=== PATIENT | male | born 1960 | race Caucasian/White ===

== ENCOUNTER 2018-08-14 20:58 | Inpatient (IN) ==
[2018-08-14 22:31] LABS: Albumin 2.9 G/DL (3.4-5.0); CKMB % 6.6 %; Calcium 8.2 MG/DL (8.5-10.1); Osmolality,Calculated 302.4 MOS/KG (273-304); Potassium 5.2 MMOL/L (3.5-5.1); Total Protein 6.6 G/DL (6.4-8.3)
[2018-08-14 22:35] LABS: Troponin I 10.6 NG/ML (0.00-0.045)
[2018-08-14] MEDS ORDERED: SODIUM CHLORIDE 0.9% 1,000 ML IV STA (23:01)
[2018-08-15] MEDS ORDERED: DEXTROSE 50% 25 GM/50 ML SYRINGE IV PRN (00:20)
[2018-08-15] MEDS ORDERED: ACETAMINOPHEN 325 MG TABLET PO PRN (00:20)
[2018-08-15] MEDS ORDERED: ALBUTEROL 2.5 MG/3 ML NEB RESP TX PRN (00:20)
[2018-08-15] MEDS ORDERED: GLUCAGON 1 MG VIAL IM PRN ×2 (00:20→17:18)
[2018-08-15] MEDS ORDERED: diphenhydrAMINE CAP 25 MG CAPSULE PO PRN (00:20)
[2018-08-15] MEDS ORDERED: NICOTINE 21 MG/24 HR PATCH TRANSDERM PRN (00:20)
[2018-08-15] MEDS ORDERED: ONDANSETRON 4 MG/2 ML VIAL IV PRN (00:20)
[2018-08-15] MEDS ORDERED: DIAZEPAM 2 MG TABLET PO PRN (00:25)
[2018-08-15] MEDS ORDERED: INSULIN GLARGINE 100 UNIT/ML SUBCUT SCH (00:30)
[2018-08-15 00:56] LABS: Risk Ratio 5.64; VLDL CHOLESTEROL 96.8 MG/DL
[2018-08-15] MEDS: DEXAMETHASONE 4 MG/1 ML VIAL IV SCH ×2 (02:35→12:31)
[2018-08-15] MEDS: PANTOPRAZOLE 40 MG VIAL IV SCH (02:35)
[2018-08-15] MEDS: SODIUM CHLORIDE 0.9% 1,000 ML IV SCH ×3 (02:36→20:30)
[2018-08-15] MEDS: INSULIN REGULAR 100 UNIT/ML SUBCUT SCH ×6 (02:36→22:45)
[2018-08-15 04:52] LABS: Basophils % 0.1 % (0.0-0.8); Hematocrit 35.3 VOL% (42.0-52.0); Hemoglobin 12.4 GM/DL (14.0-18.0); Immature Granulocytes % 1.1 %; Immature Granulocytes Absolute 0.12 #; Lymphocytes # 0.6 10*3/uL (1.4-4.0); Lymphocytes % 5.3 % (21.2-54.2); Mean Corpuscular HGB Conc 35.1 GM/DL (32-36); Mean Corpuscular Hemoglobin 34 PG (27-34); Mean Corpuscular Volume 97.5 FL (87-102); Mean Platelet Volume 11.1 FL (9.6-12.0); Monocytes # 0.3 10*3/uL (0.11-0.8); Monocytes % 3.1 % (1.7-12.7); Neutrophils # 9.6 10*3/uL (1.4-7.4); Neutrophils % 90.4 % (38.7-73.9); Platelet Count 123 T/CUMM (130-400); Red Blood Count 3.62 MC/CUMM (3.8-5.5); Red Cell Distribution Width 13.9 % (9.3-17.3); White Blood Count 10.7 T/CUMM (4-12)
[2018-08-15 04:53] LABS: Apearance,Urine CLEAR (Clear); Bacteria,Urine Occasional /HPF (Few); Bilirubin,Urine Negative (Negative); Blood, Urine Small mg/dL (Negative); Glucose,Urine (UA) >=500 mg/dL (Negative); Ketones,Urine Negative (Negative); Mucus,Urine Occasional /LPF (Occasional); Nitrite,Urine Negative (Negative); Protein,Urine Negative; RBC,Urine 1 /HPF (0-4); Urine Color Straw (Yellow); Urine Specific Gravity 1.012 (1.001-1.035); Urine Urobilinogen < 2.0 EU/DL (0.2-1.0); WBC,Urine 8 /HPF (0-6)
[2018-08-15 05:26] LABS: Albumin 2.5 G/DL (3.4-5.0); Bilirubin,Total 1.2 MG/DL (0.2-1.0); Calcium 7.7 MG/DL (8.5-10.1); Osmolality,Calculated 301.1 MOS/KG (273-304)
[2018-08-15] MEDS: hydroCHLOROthiazide 25 MG TABLET PO SCH (12:30)
[2018-08-15] MEDS: LISINOPRIL 10 MG TABLET PO SCH (12:31)
[2018-08-15] MEDS ORDERED: DEXTROSE 50% 25 GM/50 ML VIAL IV PRN (17:18)
[2018-08-15] MEDS: INSULIN GLARGINE 100 UNIT/ML SUBCUT SCH (22:45)
[2018-08-16] MEDS: DEXAMETHASONE 4 MG/1 ML VIAL IV SCH ×2 (01:40→12:40)
[2018-08-16] MEDS: PANTOPRAZOLE 40 MG VIAL IV SCH (01:43)
[2018-08-16] MEDS: INSULIN REGULAR 100 UNIT/ML SUBCUT SCH ×6 (01:47→21:08)
[2018-08-16] MEDS: SODIUM CHLORIDE 0.9% 1,000 ML IV SCH ×3 (04:30→19:00)
[2018-08-16 05:56] LABS: Basophils % 0.1 % (0.0-0.8); Hematocrit 34.7 VOL% (42.0-52.0); Hemoglobin 12.1 GM/DL (14.0-18.0); Immature Granulocytes Absolute 0.23 #; Lymphocytes # 0.6 10*3/uL (1.4-4.0); Mean Corpuscular HGB Conc 34.9 GM/DL (32-36); Mean Corpuscular Hemoglobin 35 PG (27-34); Mean Corpuscular Volume 99.1 FL (87-102); Mean Platelet Volume 10.6 FL (9.6-12.0); Monocytes # 0.4 10*3/uL (0.11-0.8); Monocytes % 3.6 % (1.7-12.7); Neutrophils # 10.4 10*3/uL (1.4-7.4); Neutrophils % 89.3 % (38.7-73.9); Platelet Count 126 T/CUMM (130-400); Red Cell Distribution Width 14.2 % (9.3-17.3); White Blood Count 11.6 T/CUMM (4-12)
[2018-08-16 06:32] LABS: Calcium 7.9 MG/DL (8.5-10.1); Potassium 5.1 MMOL/L (3.5-5.1)
[2018-08-16] MEDS: hydroCHLOROthiazide 25 MG TABLET PO SCH (08:44)
[2018-08-16] MEDS: LISINOPRIL 10 MG TABLET PO SCH (08:44)
[2018-08-16] MEDS: CIPROFLOXACIN 500 MG TABLET PO SCH ×2 (14:31→21:08)
[2018-08-16] MEDS: INSULIN GLARGINE 100 UNIT/ML SUBCUT SCH (21:07)
[2018-08-17] MEDS: PANTOPRAZOLE 40 MG VIAL IV SCH (01:24)
[2018-08-17] MEDS: DEXAMETHASONE 4 MG/1 ML VIAL IV SCH ×2 (01:25→12:37)
[2018-08-17] MEDS: INSULIN REGULAR 100 UNIT/ML SUBCUT SCH ×6 (01:26→21:28)
[2018-08-17] MEDS: SODIUM CHLORIDE 0.9% 1,000 ML IV SCH ×3 (10:08→17:11)
[2018-08-17] MEDS: LISINOPRIL 10 MG TABLET PO SCH (10:09)
[2018-08-17] MEDS: CIPROFLOXACIN 500 MG TABLET PO SCH ×2 (10:09→21:27)
[2018-08-17] MEDS: hydroCHLOROthiazide 25 MG TABLET PO SCH (10:09)
[2018-08-17] MEDS: ASPIRIN EC 81 MG TABLET PO SCH (10:09)
[2018-08-17] MEDS: INSULIN GLARGINE 100 UNIT/ML SUBCUT SCH (21:28)
[2018-08-18] MEDS: DEXAMETHASONE 4 MG/1 ML VIAL IV SCH ×2 (00:47→14:34)
[2018-08-18] MEDS: PANTOPRAZOLE 40 MG VIAL IV SCH (00:48)
[2018-08-18] MEDS: INSULIN REGULAR 100 UNIT/ML SUBCUT SCH ×4 (00:49→14:34)
[2018-08-18] MEDS: SODIUM CHLORIDE 0.9% 1,000 ML IV SCH ×2 (01:16→11:11)
[2018-08-18 04:57] LABS: Basophils % 0.1 % (0.0-0.8); Hematocrit 39.2 VOL% (42.0-52.0); Hemoglobin 12.3 GM/DL (14.0-18.0); Immature Granulocytes % 1.9 %; Lymphocytes # 0.6 10*3/uL (1.4-4.0); Lymphocytes % 5.9 % (21.2-54.2); Mean Corpuscular HGB Conc 31.4 GM/DL (32-36); Mean Corpuscular Hemoglobin 35 PG (27-34); Mean Corpuscular Volume 111.7 FL (87-102); Mean Platelet Volume 10.6 FL (9.6-12.0); Monocytes # 0.4 10*3/uL (0.11-0.8); Monocytes % 3.7 % (1.7-12.7); Neutrophils # 9.2 10*3/uL (1.4-7.4); Neutrophils % 88.4 % (38.7-73.9); Platelet Count 113 T/CUMM (130-400); Red Blood Count 3.51 MC/CUMM (3.8-5.5); Red Cell Distribution Width 13.8 % (9.3-17.3); White Blood Count 10.4 T/CUMM (4-12)
[2018-08-18 05:13] LABS: Calcium 8.2 MG/DL (8.5-10.1); Osmolality,Calculated 292.5 MOS/KG (273-304); Potassium 4.5 MMOL/L (3.5-5.1)
[2018-08-18 05:28] LABS: Hypochromasia 1+; Platelet Estimate Decreased
[2018-08-18] MEDS: ASPIRIN EC 81 MG TABLET PO SCH (09:05)
[2018-08-18] MEDS: CIPROFLOXACIN 500 MG TABLET PO SCH (09:05)
[2018-08-18] MEDS: LISINOPRIL 10 MG TABLET PO SCH (09:05)
[2018-08-18] MEDS: hydroCHLOROthiazide 25 MG TABLET PO SCH (09:05)
[2018-08-18] MEDS ORDERED: HEPARIN LOCK FLUSH 500 UNIT/5 ML SYRINGE IV ONE (10:08)
[2018-08-18 12:47] VITALS: BP 142/76
== END 2018-08-18 16:00 | disposition home or self-care (01) | DRG 280 ==
LOC: EDUNIT# → EDBD → N.ED 20:58 → SUATTDRO 08-15 00:20 → N.EDINP 08-15 00:20 → N.ICU 08-15 01:30 → N.TELEN 08-15 12:26
PROVIDERS: ADMIT Internal Medicine; ATTEND Internal Medicine

== ENCOUNTER 2018-09-01 22:42 | Inpatient (IN) ==
[2018-09-01] MEDS ORDERED: SODIUM CHLORIDE 0.9% 1,000 ML IV STA (23:08)
[2018-09-01] MEDS ORDERED: NALOXONE 0.4 MG/ML VIAL ONE (23:32)
[2018-09-01] MEDS ORDERED: VANCOMYCIN INJ 1,000 MG in SODIUM CHLORIDE 0.9% 250 ML IV STA (23:33)
[2018-09-01] MEDS ORDERED: NALOXONE 0.4 MG/ML VIAL IV STA (23:33)
[2018-09-01 23:47] LABS: Basophils % 0.1 % (0.0-0.8); Hematocrit 33.8 VOL% (42.0-52.0); Hemoglobin 11.6 GM/DL (14.0-18.0); Immature Granulocytes % 1.5 %; Immature Granulocytes Absolute 0.12 #; Lymphocytes # 0.4 10*3/uL (1.4-4.0); Lymphocytes % 4.7 % (21.2-54.2); Mean Corpuscular HGB Conc 34.3 GM/DL (32-36); Mean Corpuscular Hemoglobin 35 PG (27-34); Mean Corpuscular Volume 101.2 FL (87-102); Mean Platelet Volume 9.8 FL (9.6-12.0); Monocytes # 0.3 10*3/uL (0.11-0.8); Monocytes % 4.2 % (1.7-12.7); Neutrophils # 7.2 10*3/uL (1.4-7.4); Neutrophils % 89.5 % (38.7-73.9); Red Blood Count 3.34 MC/CUMM (3.8-5.5); Red Cell Distribution Width 13.6 % (9.3-17.3); White Blood Count 8.1 T/CUMM (4-12)
[2018-09-01] MEDS ORDERED: ACETAMINOPHEN 325 MG TABLET PO PRN (23:47)
[2018-09-01] MEDS ORDERED: ONDANSETRON 4 MG/2 ML VIAL IV PRN (23:47)
[2018-09-01] MEDS ORDERED: BISACODYL 5 MG TABLET PO PRN (23:47)
[2018-09-01] MEDS ORDERED: traZODone 50 MG TABLET PO PRN (23:47)
[2018-09-01] MEDS ORDERED: diphenhydrAMINE CAP 25 MG CAPSULE PO PRN (23:47)
[2018-09-01] MEDS ORDERED: NICOTINE 21 MG/24 HR PATCH TRANSDERM PRN (23:47)
[2018-09-01 23:49] LABS: Platelet Count 86 T/CUMM (130-400)
[2018-09-02 00:05] LABS: Albumin 2.6 G/DL (3.4-5.0); Calcium 8.4 MG/DL (8.5-10.1); Potassium 5.1 MMOL/L (3.5-5.1); Total Protein 6.2 G/DL (6.4-8.3)
[2018-09-02 00:07] LABS: CKMB % 4.5 %
[2018-09-02 00:09] LABS: Troponin I 4.55 NG/ML (0.00-0.045)
[2018-09-02] MEDS: SODIUM CHLORIDE 0.9% 1,000 ML IV SCH ×3 (01:52→19:06)
[2018-09-02 02:22] LABS: Barbiturates Screen,Urine Negative (Negative); Benzodiazepines Screen,Urine Negative (Negative); Cannabinoid Screen,Urine Negative (Negative); Opiate Screen,Urine Positive (Negative); Phencyclidine Screen,Urine Negative (Negative)
[2018-09-02 02:23] LABS: Bacteria,Urine Many /HPF (Few); RBC,Urine 124 /HPF (0-4); WBC,Urine 3854 /HPF (0-6)
[2018-09-02 02:24] LABS: Apearance,Urine Cloudy (Clear); Urine Color Light Yellow (Yellow)
[2018-09-02 02:25] LABS: Bilirubin,Urine Negative (Negative); Blood, Urine Large mg/dL (Negative); Glucose,Urine (UA) Negative (Negative); Ketones,Urine Negative (Negative); Nitrite,Urine Negative (Negative); Protein,Urine 30 MG/DL; Urine Specific Gravity 1.012 (1.001-1.035); Urine Urobilinogen < 2.0 EU/DL (0.2-1.0)
[2018-09-02 03:55] LABS: Lymphocytes 3 % (20-55); Segmented Neutrophils 96 % (50-85); Total Cells Counted 100
[2018-09-02 03:56] LABS: Platelet Estimate Decreased
[2018-09-02 04:48] LABS: Albumin 2.5 G/DL (3.4-5.0); Bilirubin,Total 0.9 MG/DL (0.2-1.0); Calcium 8.1 MG/DL (8.5-10.1); Osmolality,Calculated 314.4 MOS/KG (273-304); Potassium 4.7 MMOL/L (3.5-5.1); Total Protein 5.6 G/DL (6.4-8.3)
[2018-09-02] MEDS ORDERED: ENOXAPARIN 80 MG/0.8 ML SYRINGE SUBCUT STA (07:00)
[2018-09-02] MEDS ORDERED: PHENYLEPHRINE DRIP 40 MG/250 ML PREMIX IV PRN (08:20)
[2018-09-02] MEDS ORDERED: SODIUM CHLORIDE 0.9% 500 ML IV STA (08:24)
[2018-09-02] MEDS ORDERED: PANTOPRAZOLE 40 MG TABLET PO SCH (09:00)
[2018-09-02] MEDS: LEVOFLOXACIN INJ 750 MG in PREMIX 1 EACH IV SCH (09:40)
[2018-09-02] MEDS: DEXAMETHASONE 4 MG/1 ML VIAL IV SCH ×3 (09:40→20:19)
[2018-09-02] MEDS: PANTOPRAZOLE 40 MG VIAL IV SCH (12:15)
[2018-09-02] MEDS ORDERED: GLUCAGON 1 MG VIAL IM PRN (18:50)
[2018-09-02] MEDS ORDERED: DEXTROSE 50% 25 GM/50 ML SYRINGE IV PRN (18:50)
[2018-09-03] MEDS: DEXAMETHASONE 4 MG/1 ML VIAL IV SCH ×2 (03:35→08:44)
[2018-09-03 03:48] LABS: Hematocrit 30.3 VOL% (42.0-52.0); Hemoglobin 10.1 GM/DL (14.0-18.0); Immature Granulocytes % 1.6 %; Immature Granulocytes Absolute 0.08 #; Lymphocytes # 0.2 10*3/uL (1.4-4.0); Mean Corpuscular HGB Conc 33.3 GM/DL (32-36); Mean Corpuscular Hemoglobin 34 PG (27-34); Mean Corpuscular Volume 103.1 FL (87-102); Mean Platelet Volume 10.1 FL (9.6-12.0); Monocytes # 0.2 10*3/uL (0.11-0.8); Monocytes % 3.2 % (1.7-12.7); Neutrophils # 4.6 10*3/uL (1.4-7.4); Neutrophils % 91.2 % (38.7-73.9); Red Blood Count 2.94 MC/CUMM (3.8-5.5); Red Cell Distribution Width 13.5 % (9.3-17.3)
[2018-09-03 03:51] LABS: Platelet Count 63 T/CUMM (130-400)
[2018-09-03 04:09] LABS: Calcium 7.9 MG/DL (8.5-10.1); Potassium 5.4 MMOL/L (3.5-5.1)
[2018-09-03 04:12] LABS: Troponin I 1.99 NG/ML (0.00-0.045)
[2018-09-03 05:17] LABS: Band Neutrophils 1 % (0-10); Hypochromasia 1+; Lymphocytes 4 % (20-55); Platelet Estimate Decreased; Segmented Neutrophils 95 % (50-85); Total Cells Counted 100
[2018-09-03] MEDS: SODIUM CHLORIDE 0.9% 1,000 ML IV SCH ×2 (05:27→16:30)
[2018-09-03] MEDS: PANTOPRAZOLE 40 MG VIAL IV SCH (08:48)
[2018-09-03] MEDS ORDERED: DIAZEPAM 2 MG TABLET PO PRN (11:59)
[2018-09-03] MEDS: DEXAMETHASONE 4 MG TABLET PO SCH (16:31)
[2018-09-04 04:48] LABS: Hematocrit 27.2 VOL% (42.0-52.0); Hemoglobin 9.3 GM/DL (14.0-18.0); Immature Granulocytes Absolute 0.19 #; Lymphocytes # 0.3 10*3/uL (1.4-4.0); Lymphocytes % 5.5 % (21.2-54.2); Mean Corpuscular HGB Conc 34.2 GM/DL (32-36); Mean Corpuscular Hemoglobin 35 PG (27-34); Mean Corpuscular Volume 101.5 FL (87-102); Mean Platelet Volume 10.3 FL (9.6-12.0); Monocytes # 0.2 10*3/uL (0.11-0.8); Monocytes % 4.9 % (1.7-12.7); Neutrophils % 85.6 % (38.7-73.9); Platelet Count 61 T/CUMM (130-400); Red Blood Count 2.68 MC/CUMM (3.8-5.5); Red Cell Distribution Width 13.2 % (9.3-17.3); White Blood Count 4.7 T/CUMM (4-12)
[2018-09-04 05:05] LABS: Calcium 7.8 MG/DL (8.5-10.1); Osmolality,Calculated 306.1 MOS/KG (273-304); Potassium 5.2 MMOL/L (3.5-5.1)
[2018-09-04 05:21] LABS: Eosinophils 1 % (0-10); Lymphocytes 1 % (20-55); Platelet Estimate Normal; Polychromasia Slight; Segmented Neutrophils 96 % (50-85); Total Cells Counted 100
[2018-09-04] MEDS ORDERED: SALIVA SUBSTITUTE COMBO NO 9 PO SCH (09:00)
[2018-09-04] MEDS: SODIUM CHLORIDE 0.9% 1,000 ML IV SCH ×2 (09:44→16:06)
[2018-09-04] MEDS: PANTOPRAZOLE 40 MG TABLET PO SCH (09:45)
[2018-09-04] MEDS: SODIUM BICARBONATE 650 MG TABLET PO SCH (09:45)
[2018-09-04] MEDS: DEXAMETHASONE 4 MG TABLET PO SCH ×2 (09:45→17:12)
[2018-09-04] MEDS: LEVOFLOXACIN INJ 750 MG in PREMIX 1 EACH IV SCH (09:45)
[2018-09-04] MEDS: ASPIRIN EC 81 MG TABLET PO SCH (09:45)
[2018-09-04] MEDS: AMPICILLIN/SULBACTAM 1,500 MG in SODIUM CHLORIDE 0.9% 100 ML IV SCH (17:13)
[2018-09-04] MEDS: INSULIN LISPRO 100 UNIT/ML SUBCUT SCH ×2 (17:14→20:23)
[2018-09-05] MEDS: SODIUM CHLORIDE 0.9% 1,000 ML IV SCH ×3 (03:03→16:27)
[2018-09-05] MEDS: AMPICILLIN/SULBACTAM 1,500 MG in SODIUM CHLORIDE 0.9% 100 ML IV SCH ×2 (03:04→16:27)
[2018-09-05 07:45] LABS: Basophils % 0.2 % (0.0-0.8); Hemoglobin 10.4 GM/DL (14.0-18.0); Immature Granulocytes % 3.4 %; Lymphocytes # 0.4 10*3/uL (1.4-4.0); Lymphocytes % 6.7 % (21.2-54.2); Mean Corpuscular HGB Conc 34.7 GM/DL (32-36); Mean Corpuscular Hemoglobin 35 PG (27-34); Mean Corpuscular Volume 100.3 FL (87-102); Mean Platelet Volume 9.8 FL (9.6-12.0); Monocytes # 0.3 10*3/uL (0.11-0.8); Monocytes % 4.4 % (1.7-12.7); Neutrophils # 5.1 10*3/uL (1.4-7.4); Neutrophils % 85.3 % (38.7-73.9); Red Blood Count 2.99 MC/CUMM (3.8-5.5); Red Cell Distribution Width 13.1 % (9.3-17.3); White Blood Count 5.9 T/CUMM (4-12)
[2018-09-05 07:49] LABS: Platelet Count 70 T/CUMM (130-400)
[2018-09-05 08:06] LABS: Albumin 2.2 G/DL (3.4-5.0); Bilirubin,Total 0.9 MG/DL (0.2-1.0); Calcium 7.9 MG/DL (8.5-10.1); Osmolality,Calculated 289.4 MOS/KG (273-304); Potassium 4.8 MMOL/L (3.5-5.1); Total Protein 5.5 G/DL (6.4-8.3)
[2018-09-05] MEDS: INSULIN LISPRO 100 UNIT/ML SUBCUT SCH ×4 (08:54→21:53)
[2018-09-05] MEDS: SODIUM BICARBONATE 650 MG TABLET PO SCH (09:46)
[2018-09-05] MEDS: DEXAMETHASONE 4 MG TABLET PO SCH ×2 (09:46→16:27)
[2018-09-05] MEDS: PANTOPRAZOLE 40 MG TABLET PO SCH (09:46)
[2018-09-05] MEDS: ASPIRIN EC 81 MG TABLET PO SCH (09:46)
[2018-09-06] MEDS: SODIUM CHLORIDE 0.9% 1,000 ML IV SCH ×2 (01:42→15:08)
[2018-09-06] MEDS: AMPICILLIN/SULBACTAM 1,500 MG in SODIUM CHLORIDE 0.9% 100 ML IV SCH ×2 (03:05→15:07)
[2018-09-06 09:02] LABS: Basophils % 0.1 % (0.0-0.8); Hemoglobin 10.4 GM/DL (14.0-18.0); Immature Granulocytes % 5.7 %; Immature Granulocytes Absolute 0.38 #; Lymphocytes # 0.6 10*3/uL (1.4-4.0); Lymphocytes % 8.8 % (21.2-54.2); Mean Corpuscular HGB Conc 34.7 GM/DL (32-36); Mean Corpuscular Hemoglobin 34 PG (27-34); Mean Corpuscular Volume 98.7 FL (87-102); Mean Platelet Volume 10.1 FL (9.6-12.0); Monocytes # 0.2 10*3/uL (0.11-0.8); Monocytes % 3.4 % (1.7-12.7); Neutrophils # 5.5 10*3/uL (1.4-7.4); Red Blood Count 3.04 MC/CUMM (3.8-5.5); Red Cell Distribution Width 13.1 % (9.3-17.3); White Blood Count 6.7 T/CUMM (4-12)
[2018-09-06 09:03] LABS: Platelet Count 76 T/CUMM (130-400)
[2018-09-06 09:21] LABS: Band Neutrophils 1 % (0-10); Lymphocytes 10 % (20-55); Platelet Estimate Decreased; Segmented Neutrophils 85 % (50-85); Total Cells Counted 100
[2018-09-06 09:22] LABS: Hypochromasia 1+
[2018-09-06 09:25] LABS: Albumin 2.4 G/DL (3.4-5.0); Bilirubin,Total 0.8 MG/DL (0.2-1.0); Calcium 8.2 MG/DL (8.5-10.1); Osmolality,Calculated 291.5 MOS/KG (273-304); Potassium 5.1 MMOL/L (3.5-5.1); Total Protein 5.9 G/DL (6.4-8.3)
[2018-09-06] MEDS: PANTOPRAZOLE 40 MG TABLET PO SCH (09:27)
[2018-09-06] MEDS: ASPIRIN EC 81 MG TABLET PO SCH (09:27)
[2018-09-06] MEDS: INSULIN LISPRO 100 UNIT/ML SUBCUT SCH ×4 (09:27→21:56)
[2018-09-06] MEDS: DEXAMETHASONE 4 MG TABLET PO SCH ×2 (09:27→16:42)
[2018-09-06] MEDS: SODIUM BICARBONATE 650 MG TABLET PO SCH (09:27)
[2018-09-07] MEDS: AMPICILLIN/SULBACTAM 1,500 MG in SODIUM CHLORIDE 0.9% 100 ML IV SCH ×2 (02:16→16:50)
[2018-09-07] MEDS: INSULIN LISPRO 100 UNIT/ML SUBCUT SCH ×3 (08:30→16:50)
[2018-09-07] MEDS: SODIUM BICARBONATE 650 MG TABLET PO SCH (11:11)
[2018-09-07] MEDS: DEXAMETHASONE 4 MG TABLET PO SCH ×2 (11:11→16:58)
[2018-09-07] MEDS: PANTOPRAZOLE 40 MG TABLET PO SCH (11:11)
[2018-09-07] MEDS: ASPIRIN EC 81 MG TABLET PO SCH (11:11)
[2018-09-07 15:49] VITALS: BP 162/82
[2018-09-07] MEDS ORDERED: HEPARIN LOCK FLUSH 500 UNIT/5 ML SYRINGE IV ONE (16:45)
== END 2018-09-07 17:58 | disposition home health service (06) | DRG 871 ==
LOC: EDBD → EDUNIT# → N.ED 22:42 → N.EDINP 23:47 → SUATTDRO 23:47 → N.CC 09-02 16:03 → N.4E 09-03 14:12
PROVIDERS: ADMIT Internal Medicine; ATTEND Internal Medicine